=== PATIENT | female | born 1965 | race Caucasian/White ===

== ENCOUNTER 2017-06-23 07:12 | Outpatient (CLI) | payer OTHER ==
[~2017-06-23 07:12] MED LIST: COREG CR10 MG PO; COZAAR50 MG
== END 2017-06-23 07:23 | disposition home or self-care (01) ==
LOC: MAMO-SONO 07:12
DX: Z12.31 Encounter for screening mammogram for malignant neoplasm of breast (principal); R10.11 Right upper quadrant pain; N83.201 Unspecified ovarian cyst, right side

== ENCOUNTER 2018-04-29 07:12 | Outpatient (CLI) | payer OTHER | END 2018-04-29 08:35 | disposition home or self-care (01) | LOC: LAB 07:12 | DX: I10 Essential (primary) hypertension (principal); E11.9 Type 2 diabetes mellitus without complications; E03.8 Other specified hypothyroidism; Z11.59 Encounter for screening for other viral diseases; Z01.84 Encounter for antibody response examination ==

== ENCOUNTER 2018-10-11 15:46 | Outpatient (CLI) | payer OTHER | END 2018-10-11 15:50 | disposition home or self-care (01) | LOC: MAMO-SONO 15:46 | DX: N60.12 Diffuse cystic mastopathy of left breast (principal); N60.11 Diffuse cystic mastopathy of right breast; Z12.31 Encounter for screening mammogram for malignant neoplasm of breast; Z87.898 Personal history of other specified conditions ==

== ENCOUNTER 2019-03-20 10:32 | Outpatient (CLI) | payer OTHER | END 2019-03-20 16:51 | disposition home or self-care (01) | LOC: LAB 10:32 | DX: J11.1 Influenza due to unidentified influenza virus with other respiratory manifestations (principal) ==

== ENCOUNTER 2019-12-11 14:13 | Outpatient (CLI) | payer OTHER | END 2019-12-11 14:26 | disposition home or self-care (01) | LOC: MAMO-SONO 14:13 | PROVIDERS: ATTEND Emergency Medicine Pediatric Emergency Medicine | DX: Z12.31 Encounter for screening mammogram for malignant neoplasm of breast (principal); N64.59 Other signs and symptoms in breast ==

== ENCOUNTER 2020-01-05 09:02 | Outpatient (CLI) | payer OTHER | END 2020-01-05 09:09 | disposition home or self-care (01) | LOC: RAD 09:02 | PROVIDERS: ATTEND Emergency Medicine Pediatric Emergency Medicine | DX: M25.511 Pain in right shoulder (principal) ==

== ENCOUNTER 2020-04-25 08:20 | Outpatient (CLI) | payer OTHER | END 2020-04-25 08:27 | disposition HB | LOC: MAMO-SONO | PROVIDERS: ATTEND Emergency Medicine Pediatric Emergency Medicine | DX: N64.59 Other signs and symptoms in breast (principal); N64.4 Mastodynia ==

== ENCOUNTER 2020-05-28 10:37 | Outpatient (CLI) | payer OTHER | END 2020-05-28 14:20 | disposition home or self-care (01) | LOC: LAB 10:37 | PROVIDERS: ATTEND Physical Medicine & Rehabilitation | DX: Z20.828 Contact with and (suspected) exposure to other viral communicable diseases (principal); Z11.59 Encounter for screening for other viral diseases ==

== ENCOUNTER 2020-06-19 15:46 | Outpatient (CLI) | payer OTHER | END 2020-06-19 15:52 | disposition home or self-care (01) | LOC: RAD 15:46 | PROVIDERS: ATTEND Physical Medicine & Rehabilitation | DX: M54.2 Cervicalgia (principal); R07.89 Other chest pain ==

== ENCOUNTER 2020-09-25 08:24 | Outpatient (CLI) | payer OTHER | END 2020-09-25 08:29 | disposition home or self-care (01) | LOC: SONOGRAMA 08:24 | PROVIDERS: ATTEND General Practice | DX: K82.4 Cholesterolosis of gallbladder (principal); R10.84 Generalized abdominal pain ==

== ENCOUNTER 2020-10-03 07:36 | Outpatient (CLI) | payer OTHER | END 2020-10-03 07:37 | disposition home or self-care (01) | LOC: NUCLEAR 07:36 | PROVIDERS: ATTEND Internal Medicine Geriatric Medicine | DX: K81.1 Chronic cholecystitis (principal) | CPT/HCPCS: 78226; A9537; J2805 ==

== ENCOUNTER 2021-01-06 08:00 | Outpatient (CLI) | payer OTHER | END 2021-01-06 08:30 | disposition home or self-care (01) | LOC: PPH VACUNA 08:00 | PROVIDERS: ATTEND Emergency Medicine Pediatric Emergency Medicine | DX: Z23 Encounter for immunization (principal) ==

== ENCOUNTER 2021-02-10 08:00 | Outpatient (CLI) | payer OTHER | END 2021-02-10 08:30 | disposition home or self-care (01) | LOC: PPH VACUNA 08:00 | PROVIDERS: ATTEND Emergency Medicine Pediatric Emergency Medicine | DX: Z23 Encounter for immunization (principal) ==

== ENCOUNTER 2021-03-03 08:14 | Outpatient (CLI) | payer OTHER | END 2021-03-03 08:20 | disposition home or self-care (01) | LOC: LAB 08:14 | PROVIDERS: ATTEND Emergency Medicine Pediatric Emergency Medicine | DX: Z20.828 Contact with and (suspected) exposure to other viral communicable diseases (principal) ==

== ENCOUNTER 2022-03-31 09:46 | Outpatient (CLI) | payer OTHER | END 2022-03-31 09:58 | disposition home or self-care (01) | LOC: MAMO-SONO 09:46 | DX: N60.19 Diffuse cystic mastopathy of unspecified breast (principal) ==

== ENCOUNTER 2023-10-11 10:57 | Outpatient (CLI) | payer OTHER | END 2023-10-11 11:02 | disposition home or self-care (01) | LOC: RAD 10:57 | PROVIDERS: ATTEND Pediatrics Neonatal-Perinatal Medicine | DX: R91.8 Other nonspecific abnormal finding of lung field (principal) ==

== ENCOUNTER 2023-10-26 10:52 | Outpatient (CLI) | payer OTHER | END 2023-10-26 10:59 | disposition home or self-care (01) | LOC: RAD 10:52 | PROVIDERS: ATTEND Internal Medicine Pulmonary Disease | DX: J18.9 Pneumonia, unspecified organism (principal) ==

== ENCOUNTER 2023-10-26 11:32 | Outpatient (CLI) | payer OTHER | END 2023-10-26 11:39 | disposition home or self-care (01) | LOC: MAMO-SONO 11:32 | PROVIDERS: ATTEND Emergency Medicine Pediatric Emergency Medicine | DX: R92.8 Other abnormal and inconclusive findings on diagnostic imaging of breast (principal); Z12.39 Encounter for other screening for malignant neoplasm of breast ==

== ENCOUNTER 2024-07-26 13:50 | Emergency (ER) | payer OTHER ==
[~2024-07-26] VITALS: Ht 160 cm; Wt 70.8 kg
[2024-07-26 13:55] VITALS: BP 142/88; O2SAT 100
[2024-07-26] MEDS ORDERED: SYNTHROID125 MCG PO (13:57)
[2024-07-26] MEDS ORDERED: PREVACID30 MG PO (13:58)
[2024-07-26 14:18] LABS: BASO % 0.3 % (0.1-1.2); EOS # 0.08 (0.04-0.54); EOS % 0.7 % (0.7-7.0); HEMATOCRIT 45.6 % (34.1-44.9); HEMOGLOBIN 16.1 g/dL (11.2-15.7); LYMPH # 0.62 (1.18-3.74); LYMPH % 5.4 % (19.3-53.1); MEAN CORPUSCULAR HEMOGLOBIN 30.8 pg (25.6-32.2); MONO # 0.47 (0.24-0.82); MONO % 4.1 % (4.7-12.5); NEUT # 10.24 (1.56-6.13); NEUT % 89.2 % (34.0-71.1); PLATELET COUNT 204 K/uL (163-369); RED BLOOD COUNT 5.23 M/uL (3.93-5.22); RED CELL DISTRIBUTION WIDTH 12.4 % (11.6-14.4)
[2024-07-26] MEDS ORDERED: ONDANSETRON HCL 2 MG/ML VIAL ONE (15:04)
[2024-07-26] MEDS ORDERED: ONDANSETRON HCL 2 MG/ML VIAL IV ONE (15:15)
[2024-07-26] MEDS ORDERED: 0.9 % SODIUM CHLORIDE 1,000 ML IV SCH (15:15)
[2024-07-26 15:24] LABS: ALBUMIN 4.4 gm/dL (3.4-5.0); BILIRUBIN TOTAL 1.19 mg/dL (0.3-1.2); CALCIUM 9.4 mg/dL (8.5-10.1); CREATININE SERUM 0.74 mg/dL (0.55-1.02); GFR 81.18; GLOBULINA 4.1 G/DL (2.4-3.5); POTASSIUM 3.79 mEq/L (3.5-5.1); TOTAL PROTEIN 8.5 gm/dL (6.4-8.2)
[2024-07-26] MEDS ORDERED: FAMOtidine 10 MG/ML (4ML VIAL) IV PUSH STA (15:40)
[2024-07-26] MEDS ORDERED: HYOSCYAMINE SULFATE 0.125 MG TAB.SUBL SL ONE (15:45)
[2024-07-26] MEDS ORDERED: HYOSCYAMINE SULFATE 0.125 MG TAB.SUBL ONE (15:52)
[2024-07-26] MEDS ORDERED: FAMOTIDINE/PF 20 MG/2 ML VIAL ONE (15:53)
[2024-07-26] MEDS ORDERED: METOCLOPRAMIDE HCL 5 MG/ML VIAL ONE (17:38)
[2024-07-26] MEDS ORDERED: ONDANSETRON ODT8 MG PO (17:41)
[2024-07-26] MEDS ORDERED: PEPCID AC20 MG PO (17:41)
[2024-07-26] MEDS ORDERED: METOCLOPRAMIDE HCL 10 MG in DEXTROSE 5 % IN WATER 50 ML IV ONE (17:45)
== END 2024-07-26 18:05 | disposition home or self-care (01) ==
LOC: EMR PED 14:00 → ER 14:00
DX: K52.9 Noninfective gastroenteritis and colitis, unspecified (principal)